=== PATIENT | female | born 1955 | race Hispanic/Latino ===

== ENCOUNTER 2024-08-31 14:13 | Emergency (ER) | payer MEDICARE ==
[~2024-08-31] VITALS: Ht 147.3 cm; Wt 76.2 kg
[2024-08-31 15:19] VITALS: TEMP 98.8
[2024-08-31] MEDS: METHYLPREDNISOLONE ACETATE 80 MG/ML VIAL IM ONE (20:22)
[2024-08-31 22:28] VITALS: PULSE 96; RESP 16; O2SAT 100
== END 2024-08-31 22:28 | disposition home or self-care (01) ==
LOC: ER 20:05
DX: J32.1 Chronic frontal sinusitis (principal); J32.0 Chronic maxillary sinusitis; R09.89 Other specified symptoms and signs involving the circulatory and respiratory systems
CPT/HCPCS: 70450; 70486; 99283; J1040